=== PATIENT | female | born 1970 | race American Indian/Alaskan Native ===

== ENCOUNTER 2017-08-10 10:41 | Emergency (ER) | payer OTHER ==
[2017-08-10 11:03] VITALS: RESP 18; TEMP 98.3; O2SAT 100
--- NOTE | 2017-08-10 11:24 | ED PDOC ---
Arrival/HPI - General Chief Complaint: Chest Pain Time Seen by Provider: 08/10/17 10:47 Historian: Patient - History of Present Illness Narrative History of Present Illness (Text): 08/10/17 11:24 A 47 year old female, whose past medical history includes anemia, presents to the emergency department complaining of chest pain for the past three days, worsening today. Patient notes chest pain radiates to left side of neck. Denies taking any medications for pain. Patient denies any other complaints at this time. Time/Duration: Other (3 days) Symptom Onset: Sudden Symptom Course: Unchanged Activities at Onset: Rest Context: Home Past Medical History - Provider Review Nursing Documentation Reviewed: Yes - Endocrine/Metabolic Hx Hypothyroidism: Yes - Psychiatric Hx Substance Use: No - Anesthesia Hx Anesthesia: No Hx Anesthesia Reactions: No Hx Malignant Hyperthermia: No Family/Social History - Physician Review Nursing Documentation Reviewed: Yes Family/Social History: No Known Family HX Smoking Status: Never Smoked Hx Alcohol Use: No Hx Substance Use: No Allergies/Home Meds Allergies/Adverse Reactions: Allergies pepper Allergy (Verified 08/10/17 11:10) RASH shellfish derived Allergy (Verified 08/10/17 11:10) RASH tomato Allergy (Verified 08/10/17 11:10) RASH Review of Systems - Physician Review All systems were reviewed & negative as marked: Yes - Review of Systems Cardiovascular: Chest Pain Musculoskeletal: Neck Pain (left sided) Physical Exam Vital Signs Reviewed: Yes Vital Signs Temp Pulse Resp BP Pulse Ox 08/10/17 13:22 64 18 135/64 100 08/10/17 11:03 98.3 F 65 18 138/65 100 Temperature: Afebrile Blood Pressure: Normal Pulse: Regular Respiratory Rate: Normal Appearance: Positive for: Well-Appearing, Non-Toxic, Comfortable Pain Distress: None Mental Status: Positive for: Alert and Oriented X 3 - Systems Exam Head: Present: Atraumatic, Normocephalic Pupils: Present: PERRL Extroacular Muscles: Present: EOMI Conjunctiva: Present: Normal Mouth: Present: Moist Mucous Membranes Neck: Present: Normal Range of Motion Respiratory/Chest: Present: Clear to Auscultation, Good Air Exchange, Other ( reproducible chest pain). No: Respiratory Distress, Accessory Muscle Use Cardiovascular: Present: Regular Rate and Rhythm, Normal S1, S2. No: Murmurs Abdomen: Present: Normal Bowel Sounds. No: Tenderness, Distention, Peritoneal Signs Back: Present: Normal Inspection Upper Extremity: Present: Normal Inspection. No: Cyanosis, Edema Lower Extremity: Present: Normal Inspection. No: Edema Neurological: Present: GCS=15, CN II-XII Intact, Speech Normal Skin: Present: Warm, Dry, Normal Color. No: Rashes Psychiatric: Present: Alert, Oriented x 3, Normal Concentration, Anxious Medical Decision Making ED Course and Treatment: 08/10/17 11:21 Impression: A 47 year old female with chest pain. Plan: -- EKG -- chest xray -- labs -- Urinalysis -- Flexeril, Toradol -- Reassess and disposition Progress Notes: EKG: Ordered, reviewed, and independently interpreted the EKG. Rate : 67 BPM Rhythm : NSR Interpretation : Normal intervals, normal axis 08/10/17 12:32 Chest xray- Creator : Alec Medrano MD FINDINGS: LUNGS: No active pulmonary disease. PLEURA: No significant pleural effusion identified. No pneumothorax apparent. CARDIOVASCULAR: Normal. OSSEOUS STRUCTURES: No significant abnormalities. VISUALIZED UPPER ABDOMEN: Normal. IMPRESSION: No active disease. 08/10/17 13:53 On re-evaluation, patient feels better and is in no acute distress. I have discussed the results and plan with the patient, who expresses understanding. Patient in agreement with plan to be discharged home. Patient is stable for discharge. Patient was instructed to follow up with physician or return if symptoms worsen or new concerning symptoms arise. - Lab Interpretations Lab Results: 08/10/17 12:00 08/10/17 12:00 Lab Results 08/10/17 12:00: Sodium 141, Potassium 4.2, Chloride 105, Carbon Dioxide 27, Anion Gap 13, BUN 10, Creatinine 0.7, Est GFR ( Amer) > 60, Est GFR (Non- Af Amer) > 60, Random Glucose 77, Calcium 9.3, Total Bilirubin 0.4, AST 20, ALT 21, Alkaline Phosphatase 67, Lactate Dehydrogenase 466, Total Creatine Kinase 68 , Troponin I < 0.01, Total Protein 7.4, Albumin 3.8, Globulin 3.6, Albumin/ Globulin Ratio 1.1 08/10/17 12:00: PT 12.5, INR 1.09 H, D-Dimer, Quantitative < 200 08/10/17 12:00: WBC 5.3, RBC 5.02, Hgb 11.5 L, Hct 37.8, MCV 75.3 L, MCH 22.9 L , MCHC 30.4 L, RDW 18.6 H, Plt Count 338, MPV 10.3, Gran % 49.3 L, Lymph % (Auto ) 38.7 H, [place] % (Auto) 8.0 H, Eos % (Auto) 2.3, Baso % (Auto) 1.7, Gran # 2.60 , Lymph # (Auto) 2.0, [place] # (Auto) 0.4, Eos # (Auto) 0.1, Baso # (Auto) 0.09 08/10/17 11:50: Urine Color Yellow, Urine Appearance Slight-cloudy, Urine pH 7.0 , Ur Specific [place] 1.015, Urine Protein Negative, Urine Glucose (UA) Negative , Urine Ketones Negative, Urine Blood Moderate H, Urine Nitrate Negative, Urine Bilirubin Negative, Urine Urobilinogen 0.2, Ur Leukocyte Esterase Negative, Urine RBC 2 - 5, Urine WBC Negative, Ur Epithelial Cells None I have reviewed the lab results: Yes - RAD Interpretation Radiology Orders: 08/10/17 11:17 CHEST TWO VIEWS (PA/LAT) [RAD] Stat - EKG Interpretation Interpreted by ED Physician: Yes Type: 12 lead EKG - Medication Orders Current Medication Orders: Discontinued Medications Cyclobenzaprine HCl (Flexeril) 10 mg PO STAT STA Stop: 08/10/17 11:22 Last Admin: 08/10/17 12:03 Dose: 10 mg Ketorolac Tromethamine (Toradol) 30 mg IVP STAT STA Stop: 08/10/17 11:22 Last Admin: 08/10/17 11:53 Dose: 30 mg MAR Pain Assessment Document 08/10/17 11:53 EQ (Rec: 08/10/17 11:53 EQ [facility] [id number][place] Pain Reassessment Is this a pain reassessment? No Sleep Is patient sleeping during reassessment? No Presence of Pain Presence of Pain Yes Pain Scale Used Pain Scale Used Numeric IVP Administration Document 08/10/17 11:53 EQ (Rec: 08/10/17 11:53 EQ [facility] [id number]) Charges for Administration # of IVP Administrations 1 - PA / CUSTOMS COMPLIANCE SPECIALIST / Resident Statement MD/DO has reviewed & agrees with the documentation as recorded. - Scribe Statement The provider has reviewed the documentation as recorded by the Melvin Lee Provider Scribe Attestation: All medical record entries made by the Rehanaibe were at my direction and personally dictated by me. I have reviewed the chart and agree that the record accurately reflects my personal performance of the history, physical exam, medical decision making, and the department course for this patient. I have also personally directed, reviewed, and agree with the discharge instructions and disposition. Disposition/Present on Arrival - Present on Arrival Any Indicators Present on Arrival: No History of DVT/PE: No History of Uncontrolled Diabetes: No Urinary Catheter: No History of Decub. Ulcer: No History Surgical Site Infection Following: None - Disposition Have Diagnosis and Disposition been Completed?: Yes Diagnosis: Musculoskeletal chest pain Disposition: HOME/ ROUTINE Disposition Time: 13:47 Patient Plan: Discharge Patient Problems: Current Active Problems Problem Status Onset Musculoskeletal chest pain Acute Condition: GOOD Discharge Instructions (ExitCare): Costochondritis (DC), Chest Pain (ED) Additional Instructions: Amanda - Kyary that you are having this pain. All of your test's are normal- You can take motrin over thee counter for the pain. Follow up with your doctor in a few days. Return to us if worse or any problems. Jony- Dr. Billy Tellez Referrals: [facility], [Primary Care Provider] - Follow up with primary Forms: [facility] (Pashto)
[2017-08-10 12:01] LABS: URINE BILIRUBIN NEGATIVE (NEGATIVE); URINE BLOOD MODERATE (NEGATIVE); URINE GLUCOSE (UA) NEGATIVE (NEGATIVE); URINE LEUKOCYTE ESTERASE NEGATIVE Leu/uL (NEGATIVE); URINE NITRATE NEGATIVE (NEGATIVE); URINE PROTEIN NEGATIVE mg/dL (<30 mg/dL); URINE UROBILINOGEN 0.2 E.U./dL (<1 E.U./dL)
[2017-08-10 12:02] LABS: URINE APPEARANCE SLIGHT-CLOUDY (CLEAR); URINE COLOR YELLOW (YELLOW)
[2017-08-10 12:09] LABS: URINE WBC NEGATIVE /hpf (0-6)
[2017-08-10 12:20] LABS: BASO # 0.09 K/mm3 (0.0-2.0); BASO % 1.7 % (0.0-3.0); EOS # 0.1 (0.0-0.7); EOS % 2.3 % (1.5-5.0); GRAN # 2.6 (1.4-6.5); GRAN % 49.3 % (50.0-68.0); HEMOGLOBIN 11.5 g/dL (12.0-16.0); LYMPH % 38.7 % (22.0-35.0); MEAN CELL VOLUME 75.3 fl (80.0-105.0); MEAN CORPUSCULAR HEMOGLOBIN 22.9 pg (25.0-35.0); MEAN CORPUSCULAR HGB CONC 30.4 g/dl (31.0-37.0); MEAN PLATELET VOLUME 10.3 fl (7.0-11.0); MONO # 0.4 (0.1-0.6); RBC 5.02 10^6/uL (3.5-6.1); RED CELL DISTRIBUTION WIDTH 18.6 % (11.5-14.5); WHITE BLOOD COUNT 5.3 10^3/ul (4.5-11.0)
--- NOTE | 2017-08-10 12:30 | RAD ---
HISTORY: Left anterior chest wall pain COMPARISON: No prior. TECHNIQUE: Chest PA and lateral FINDINGS: LUNGS: No active pulmonary disease. PLEURA: No significant pleural effusion identified. No pneumothorax apparent. CARDIOVASCULAR: Normal. OSSEOUS STRUCTURES: No significant abnormalities. VISUALIZED UPPER ABDOMEN: Normal. OTHER FINDINGS: None. IMPRESSION: No active disease.
[2017-08-10 12:31] LABS: ALB/GLOB RATIO 1.1 (1.1-1.8); ALBUMIN 3.8 g/dL (3.0-4.8); ALT/SGPT 21 U/L (7-56); AST/SGOT 20 U/L (14-36); BLOOD UREA NITROGEN 10 mg/dL (7-21); CALCIUM 9.3 mg/dL (8.4-10.5); GFR AFRICAN-AMERICAN > 60; GFR NON-AFRICAN AMERICAN > 60
[2017-08-10 12:37] LABS: D DIMER < 200 ng/mL (0-243); INR 1.09 (0.93-1.08); PROTHROMBIN TIME 12.5 SECONDS (9.4-12.5)
[2017-08-10 12:46] LABS: TROPONIN I < 0.01 ng/mL
[2017-08-10 13:23] VITALS: BP 135/64; PULSE 64
--- NOTE | 2017-08-10 21:06 | CARD ---
APPROVED REPORT EKG Measurement Heart [id number] <Conclusion> Normal sinus rhythm Low voltage QRS Borderline ECG
== END 2017-08-10 14:18 | disposition home or self-care (01) ==
LOC: ED 10:41
DX: R07.89 Other chest pain (principal); E03.9 Hypothyroidism, unspecified
CPT/HCPCS: 71046; 80053; 81001; 81025; 82550; 83615; 84484; 85025; 85378; 85610; 93005; 96374; 99283; J1885